=== PATIENT | female | born 1970 | race Caucasian/White ===

== ENCOUNTER 2019-03-02 19:24 | Emergency (ER) | payer OTHER ==
[2019-03-02 21:13] LABS: ABS Eosinophils 0.1 10^3/ul (0-0.6); ABS Lymphocytes 2.7 10^3/ul (1.0-4.8); ABS Monocytes 0.8 10^3/ul (0-0.8); ABS Neutrophils 6.8 10^3/ul (1.5-7.7); Eosinophil % 1.2 %; Hematocrit 42 % (35-47); Hemoglobin 13.6 g/dL (12.0-16.0); Lymphocyte % 26.2 %; Mean Corpuscular HGB Conc 32 g/dL (31-36); Mean Corpuscular Hemoglobin 27 pg (27-31); Mean Corpuscular Volume 84 fL (80-97); Mean Platelet Volume 7.6 fL (7.4-10.4); Platelet Count 336 10^3/uL (150-450); Red Blood Count 5.02 10^6 /uL (3.70-4.87); Red Cell Distribution Width 19 % (10.5-15); White Blood Count 10.4 10^3/uL (3.5-10.8)
[2019-03-02 21:30] LABS: Albumin 4.1 g/dL (3.2-5.2); Albumin/Globulin Ratio 1.2 (1-3); Calcium 9.5 mg/dL (8.6-10.3); EGFR African American 77.2 (>60); EGFR Non-African American 63.8 (>60); Globulin 3.5 g/dL (2-4); Potassium 4.5 mmol/L (3.5-5.0); Total Bilirubin 0.3 mg/dL (0.2-1.0); Total Protein 7.6 g/dL (6.4-8.9)
--- NOTE | 2019-03-02 22:45 | ED ---
Lower Extremity - HPI Summary HPI Summary: This patient is a 48 year old female presenting to [facility] accompanied by family with a chief complaint of right lower extremity swelling since 3 weeks ago. Patient broke her right knee 5 months ago and received surgery for it. The wound was healing normally, but around 3 weeks ago, patient noticed that the leg was constantly swelling and opening up on the incision site. Patient presents to the ED because she believes that it is beginning to affect her heart. The pain is rated 7/10 in severity. Symptoms aggravated by nothing. Symptoms alleviated by nothing. Patient additionally reports heart palpitations , SOB. - History of Current Complaint Chief Complaint: EDExtremityLower Stated Complaint: LEG SWELLING AFTER SURGERY,AFFECTING HEART PER PT Time Seen by Provider: 03/02/19 19:50 Hx Obtained From: Patient Onset/Duration: Weeks Severity Currently: Moderate Pain Intensity: 7 Pain Scale Used: 0-10 Numeric Timing: Constant Location: Is Discrete @ - right knee Associated Signs And Symptoms: Positive: Other - palpitations, SOB Aggravating Factor(s): Nothing Alleviating Factor(s): Nothing Able to Bear Weight: Yes - with crutches - Allergies/Home Medications Allergies/Adverse Reactions: Allergies Allergy/AdvReac Type Severity Reaction Status Date / Time No Known Allergies Allergy Verified 03/02/19 19:36 Home Medications: Home Medications Albuterol HFA INHALER* [Ventolin HFA Inhaler*] 2 puff INH Q4H PRN 03/02/19 [ History Confirmed 03/02/19] Escitalopram * [Lexapro *] 20 mg PO DAILY 03/02/19 [History Confirmed 03/02/19] Gabapentin 600 mg PO QID 03/02/19 [History Confirmed 03/02/19] Metoprolol Tartrate TAB* [Lopressor TAB*] 12.5 mg PO BID 03/02/19 [History Confirmed 03/02/19] Nitroglycerin 0.4 mg SL DAILY PRN 03/02/19 [History Confirmed 03/02/19] Umeclidinium [place] [Incruse Ellipta] 62.5 mcg INH DAILY 03/02/19 [History Confirmed 03/02/19] PMH/Surg Hx/FS Hx/Imm Hx Previously Healthy: Yes Cardiovascular History: Reports: Hx Hypertension - not on med Respiratory History: Reports: Hx Chronic Obstructive Pulmonary Disease (COPD) Opthamlomology History: Denies: Hx Legally Blind EENT History: Denies: Hx Deafness - Surgical History Surgery Procedure, Year, and Place: right ankle. back 1998 L3-L4 Infectious Disease History: No Infectious Disease History: Denies: Traveled Outside the [place] in Last 30 Days - Family History Known Family History: Positive: Hypertension - Social History Lives: With Family Alcohol Use: None Hx Substance Use: No Substance Use Type: Reports: None Hx Tobacco Use: Yes Smoking Status (MU): Light Every Day Tobacco Smoker Type: Cigarettes Amount Used/How Often: 6 cigarettes daily Review of Systems Negative: Fever Positive: Palpitations Positive: Shortness Of Breath Positive: Other - right lower extremity swelling All Other Systems Reviewed And Are Negative: Yes Physical Exam - Summary Physical Exam Summary: Appearance: Well-appearing, Well-nourished, lying in bed comfortable Skin: Warm, dry, no obvious rash Eyes: sclera anicteric, no conjunctival pallor ENT: mucous membranes moist Neck: deferred Respiratory: No signs of respiratory distress Cardiovascular: Appears well perfused, pulses are nml Abdomen: deferred Musculoskeletal: Moving all 4 extremities without obvious discomfort, Surgical incision overlying right knee, signs of poor healing in the inferior part of incision, but still clean and dry Neurological: Awake and alert, mentation is normal, speech is fluent and appropriate Psychiatric: affect is normal, does not appear anxious or depressed Triage Information Reviewed: Yes Vital Signs On Initial Exam: Initial Vitals Temp Pulse Resp BP Pulse Ox 97.3 F 99 22 146/88 98 03/02/19 19:31 03/02/19 19:31 03/02/19 19:31 03/02/19 19:31 03/02/19 19:31 Vital Signs Reviewed: Yes Diagnostics - Vital Signs Vital Signs Temp Pulse Resp BP Pulse Ox 03/02/19 21:22 98 F 92 18 116/76 100 03/02/19 19:31 97.3 F 99 22 146/88 98 - Laboratory Lab Results: Lab Results 03/02/19 03/02/19 03/02/19 Range/Units 21:02 21:02 21:02 WBC 10.4 (3.5-10.8) 10^3/uL RBC 5.02 H (3.70-4.87) 10^6 /uL Hgb 13.6 (12.0-16.0) g/dL Hct 42 (35-47) % MCV 84 (80-97) fL MCH 27 (27-31) pg MCHC 32 (31-36) g/dL RDW 19 H (10.5-15) % Plt Count 336 (150-450) 10^3/uL MPV 7.6 (7.4-10.4) fL Neut % (Auto) 65.0 % Lymph % (Auto) 26.2 % [place] % (Auto) 7.2 % Eos % (Auto) 1.2 % Baso % (Auto) 0.4 % Absolute Neuts (auto) 6.8 (1.5-7.7) 10^3/ul Absolute Lymphs (auto) 2.7 (1.0-4.8) 10^3/ul Absolute Monos (auto) 0.8 (0-0.8) 10^3/ul Absolute Eos (auto) 0.1 (0-0.6) 10^3/ul Absolute Basos (auto) 0.0 (0-0.2) 10^3/ul Absolute Nucleated RBC 0.0 10^3/ul Nucleated RBC % 0.0 D-Dimer, Quantitative 334 H (Less Than 230) ng/mL Sodium 140 (135-145) mmol/L Potassium 4.5 (3.5-5.0) mmol/L Chloride 102 (101-111) mmol/L Carbon Dioxide 31 (22-32) mmol/L Anion Gap 7 (2-11) mmol/L BUN 13 (6-24) mg/dL Creatinine 0.93 (0.51-0.95) mg/dL Est GFR ( Amer) 77.2 (>60) Est GFR (Non-Af Amer) 63.8 (>60) BUN/Creatinine Ratio 14.0 (8-20) Glucose 101 H (70-100) mg/dL Calcium 9.5 (8.6-10.3) mg/dL Total Bilirubin 0.30 (0.2-1.0) mg/dL AST 13 (13-39) U/L ALT 13 (7-52) U/L Alkaline Phosphatase 85 (34-104) U/L Troponin I 0.00 (<0.04) ng/mL Total Protein 7.6 (6.4-8.9) g/dL Albumin 4.1 (3.2-5.2) g/dL Globulin 3.5 (2-4) g/dL Albumin/Globulin Ratio 1.2 (1-3) Result Diagrams: 03/02/19 21:02 03/02/19 21:02 Lab Statement: Any lab studies that have been ordered have been reviewed, and results considered in the medical decision making process. - Radiology CXR Radiology Interpretation Completed By: ED Physician Summary of Radiographic Findings: CXR reveals, per ED physician, small left pleural effusion. Pending official report. Knee XR Radiology Interpretation Completed By: ED Physician Summary of Radiographic Findings: Knee XR reveals, per ED physician, Hardware in place, no new fractures. Pending official report. - CT CTa Chest/Thorax CT Interpretation Completed By: Radiologist Summary of CT Findings: CTA Chest/Thorax reveals, per radiologist, IMPRESSION: 1. No pulmonary emboli. 2. Chronic left effusion with associated inferior lingular and left lower lobe round atelectasis. 3. Mild emphysema. ED physician has reviewed this radiology report. - EKG 1937 Cardiac Rate: NL EKG Rhythm: Sinus Rhythm - 88 BPM Summary of EKG Findings: An EKG, taken 1937, reveals NSR (88 BPM), P waves, QRS complex, and T waves are within normal limits, T waves and intervals are normal , no ischemic changes. This is a normal EKG. - Additional Comments Diagnostic Additional Comments: Venous Doppler Study reveals, per radiologist, IMPRESSION: No right lower extremity deep vein thrombosis. ED physician has reviewed this radiology report. Lower Extremity Course/Dx - Course Course Of Treatment: This is a 48-year-old woman who had ORIF of comminuted tibial plateau fracture a few months ago in [place]. Her recovery has been complicated by difficulty getting to the surgeon in [place] with transportation issues. She comes in tonight with several weeks of what she describes as swelling in the leg as well as intermittent opening of the lower part of the wound. Tonight the leg does look swollen, but Dr. warren is negative for DVT. I can see the area of poor healing, but at this point it is clean and dry and closed. She has an elevated d-dimer, and has been complaining of some dyspnea and chest pain, and has a pleural effusion on the left side cannot discount the possibility of pulmonary embolus in the setting. I'll get a CT angiogram of the chest, but ultimately if that is negative I anticipate discharge and I reinforced the necessity of getting some type of transportation arrangements to have her surgeon follow-up on this. I will give her local follow-up options, but she may have trouble getting a local surgeon to assume her care. CTA of the chest was negative for pulmonary embolus, however there is an area of effusion with compressive atelectasis and basilar left lung. Clinically she is not behaving maximally with pneumonia, but the appearance is suggestive of that somebody put her on a course of antibiotics. I went over all this with her and reiterated that she needs local follow-up medically. - Diagnoses Provider Diagnoses: Parapneumonic effusion, Edema of right lower leg due to venous stasis Discharge - Sign-Out/Discharge Documenting (check all that apply): Patient Departure Patient Received Moderate/Deep Sedation with Procedure: No - Discharge Plan Condition: Good Disposition: HOME Prescriptions: Azithromycin TAB* [Zithromax TAB (Z-RENETTA) 250 mg #6 tabs] 2 tab PO .TODAY, THEN 1 DAILY #1 renetta Patient Education Materials: Pleural Effusion (ED) Referrals: Rubén Rowley MD [Medical Doctor] - Jc Luu MD [Medical Doctor] - Additional Instructions: Dr. Rowley or Dr. Luu may be able to help you with your wound issues, but ultimately you may have to make your way back to your surgeon in [place] if it is not healing well. You need to elevate the leg frequently to minimize the swelling, as excess swelling will prolong wound healing. You also will need a local card grinder to look after the issues in your left lung, and the interim you can go to the [facility] clinic listed. I'm going to empirically treat you with a course of antibiotics for suspected infection in the left lung - Billing Disposition and Condition Condition: GOOD Disposition: Home - Attestation Statements Document Initiated by Betzaida: Yes Documenting Scribe: Sharla Martino Provider For Whom Betzaida is Documenting (Include Credential): Avila Lanier MD Scribfaye Attestation: Sharla Schultz, scribed for Avila Lanier MD on 03/03/19 at 0616. Scribe Documentation Reviewed: Yes Provider Attestation: The documentation as recorded by the Sharla canada accurately reflects the service I personally performed and the decisions made by me, Avila Lanier MD Status of Scribe Document: Viewed
[2019-03-02] MEDS ORDERED: HYDROcodone/ACETAMIN 5-325 MG* 1 TAB PO ONE (23:59)
[2019-03-03] MEDS ORDERED: Iohexol 350* (CONTRAST) 500 ML MDV IV ONE (00:28)
[2019-03-03 02:13] VITALS: BP 123/77
== END 2019-03-03 02:12 | disposition home or self-care (01) ==
LOC: ED 19:24
DX: J90 Pleural effusion, not elsewhere classified (principal); R91.8 Other nonspecific abnormal finding of lung field; I87.8 Other specified disorders of veins; R60.0 Localized edema; I10 Essential (primary) hypertension; J44.9 Chronic obstructive pulmonary disease, unspecified; F17.210 Nicotine dependence, cigarettes, uncomplicated; Z79.51 Long term (current) use of inhaled steroids; Z79.899 Other long term (current) drug therapy; Z96.698 Presence of other orthopedic joint implants
CPT/HCPCS: 36415; 71046; 71275; 80053; 84484; 85025; 85379; 93005; 99283; Q9967

== ENCOUNTER 2019-03-05 17:01 | Inpatient (IN) | payer OTHER ==
[2019-03-05 17:59] LABS: ABS Basophils 0.1 10^3/ul (0-0.2); ABS Eosinophils 0.1 10^3/ul (0-0.6); ABS Lymphocytes 2.2 10^3/ul (1.0-4.8); ABS Monocytes 0.7 10^3/ul (0-0.8); ABS Neutrophils 6.2 10^3/ul (1.5-7.7); Eosinophil % 1.5 %; Hematocrit 40 % (35-47); Lymphocyte % 23.8 %; Mean Corpuscular HGB Conc 33 g/dL (31-36); Mean Corpuscular Hemoglobin 27 pg (27-31); Mean Corpuscular Volume 83 fL (80-97); Mean Platelet Volume 7.5 fL (7.4-10.4); Platelet Count 318 10^3/uL (150-450); Red Blood Count 4.79 10^6 /uL (3.70-4.87); Red Cell Distribution Width 19 % (10.5-15); White Blood Count 9.4 10^3/uL (3.5-10.8)
[2019-03-05 18:18] LABS: ALT 14 U/L (7-52); AST 14 U/L (13-39); Albumin 3.9 g/dL (3.2-5.2); Albumin/Globulin Ratio 1.2 (1-3); Alkaline Phosphatase 73 U/L (34-104); Anion Gap 8 mmol/L (2-11); Blood Urea Nitrogen 13 mg/dL (6-24); CO2 Carbon Dioxide 28 mmol/L (22-32); Calcium 9.7 mg/dL (8.6-10.3); Chloride 102 mmol/L (101-111); EGFR African American 77.2 (>60); EGFR Non-African American 63.8 (>60); Globulin 3.3 g/dL (2-4); Glucose 98 mg/dL (70-100); Potassium 4.1 mmol/L (3.5-5.0); Sodium 138 mmol/L (135-145); Total Protein 7.2 g/dL (6.4-8.9)
--- NOTE | 2019-03-05 18:50 | ED ---
HPI Cardiac - HPI Summary HPI Summary: Patient is a 48 y/o F presenting to ED with complaints of chest pressure, SOB, dizziness, pain behind her shoulder blades, cough and fatigue. Sx have been present for the past few days with exacerbation of Sx today. Dizziness is described as constant. Fever is denied. She had been seen 03/02/19, patient was discharged to home. Recent CXR had shown pleural effusion. Deep breaths and movement are noted to aggravate Sx. Patient has home o2. PMHx of HTN, COPD. PSHx of CABG, right ankle surgery, L3-L4 back surgery, FMHx of HTN, patient is a current smoker, alcohol and substance usage is denied. Home medications and allergies are reviewed. - History of Current Complaint Chief Complaint: EDChestPainROMI Stated Complaint: BREATHING IS GETTING WORSE PER PT Time Seen by Provider: 03/05/19 18:30 Hx Obtained From: Patient Onset/Duration: Started Days Ago, Still Present, Worse Since Timing: Constant, Lasting Days Pain Intensity: 0 Pain Scale Used: 0-10 Numeric Character: Pressure/Squeezing Aggravating Factor(s): Movement, Deep Breaths Alleviating Factor(s): Nothing Associated Signs and Symptoms: Positive: Chest Pain, Dizziness, Shortness of Breath, Cough, Back Pain - behind shoulder blades, Other: - fatigue. Negative: Fever - Allergy/Home Medications Allergies/Adverse Reactions: Allergies Allergy/AdvReac Type Severity Reaction Status Date / Time No Known Allergies Allergy Verified 03/02/19 19:36 PMH/Surg Hx/FS Hx/Imm Hx Endocrine/Hematology History: Denies: Hx Diabetes Cardiovascular History: Reports: Hx Hypertension - not on med Respiratory History: Reports: Hx Chronic Obstructive Pulmonary Disease (COPD) History: Denies: Hx Renal Disease Sensory History: Denies: Hx Legally Blind, Hx Deafness Opthamlomology History: Denies: Hx Legally Blind - Surgical History Surgery Procedure, Year, and Place: right ankle. back 1998 L3-L4 - Immunization History Date of Tetanus Vaccine: UTD Date of Influenza Vaccine: UTD Infectious Disease History: No Infectious Disease History: Denies: Traveled Outside the [place] in Last 30 Days - Family History Known Family History: Positive: Hypertension - Social History Alcohol Use: None Hx Substance Use: No Substance Use Type: Reports: None Hx Tobacco Use: Yes Smoking Status (MU): Light Every Day Tobacco Smoker Type: Cigarettes Amount Used/How Often: 6 cigarettes daily Review of Systems Positive: Fatigue. Negative: Fever Positive: Chest Pain Positive: Shortness Of Breath, Cough Musculoskeletal: Other - POSITIVE - BACK PAIN Neurological: Other - POSITIVE - DIZZINESS All Other Systems Reviewed And Are Negative: Yes Physical Exam - Summary Physical Exam Summary: VITAL SIGNS: Reviewed. GENERAL: Patient is a well-developed and obese female who is lying comfortable in the stretcher. Patient is not in any acute respiratory distress. HEAD AND FACE: No signs of trauma. No ecchymosis, hematomas or skull depressions. No sinus tenderness. EYES: PERRLA, EOMI x 2, No injected conjunctiva, no nystagmus. EARS: Hearing grossly intact. Ear canals and tympanic membranes are within normal limits. MOUTH: Oropharynx within normal limits. NECK: Supple, trachea is midline, no adenopathy, no JVD, no carotid bruit, no c- spine tenderness, neck with full ROM. CHEST: Symmetric, no tenderness at palpation LUNGS: Decreased breath sounds bilaterally, crackles at bases of both lungs. CVS: Regular rate and rhythm, S1 and S2 present, no murmurs or gallops appreciated. ABDOMEN: Soft, non-tender. No signs of distention. No rebound no guarding, and no masses palpated. Bowel sounds are normal. EXTREMITIES: FROM in all major joints, no edema, no cyanosis or clubbing. NEURO: Alert and oriented x 3. No acute neurological deficits. Speech is normal and follows commands. SKIN: Dry and warm Triage Information Reviewed: Yes Vital Signs On Initial Exam: Initial Vitals Temp Pulse Resp BP Pulse Ox 95.8 F 101 24 168/105 97 03/05/19 17:06 03/05/19 17:06 03/05/19 17:06 03/05/19 17:06 03/05/19 17:06 Vital Signs Reviewed: Yes Diagnostics - Vital Signs Vital Signs Temp Pulse Resp BP Pulse Ox 03/05/19 18:45 91 13 139/86 96 03/05/19 18:44 89 15 94 03/05/19 17:06 95.8 F 101 24 168/105 97 - Laboratory Lab Results: Lab Results 03/05/19 03/05/19 03/05/19 Range/Units 17:50 17:50 17:50 WBC 9.4 (3.5-10.8) 10^3/uL RBC 4.79 (3.70-4.87) 10^6 /uL Hgb 13.0 (12.0-16.0) g/dL Hct 40 (35-47) % MCV 83 (80-97) fL MCH 27 (27-31) pg MCHC 33 (31-36) g/dL RDW 19 H (10.5-15) % Plt Count 318 (150-450) 10^3/uL MPV 7.5 (7.4-10.4) fL Neut % (Auto) 66.4 % Lymph % (Auto) 23.8 % [place] % (Auto) 7.2 % Eos % (Auto) 1.5 % Baso % (Auto) 1.1 % Absolute Neuts (auto) 6.2 (1.5-7.7) 10^3/ul Absolute Lymphs (auto) 2.2 (1.0-4.8) 10^3/ul Absolute Monos (auto) 0.7 (0-0.8) 10^3/ul Absolute Eos (auto) 0.1 (0-0.6) 10^3/ul Absolute Basos (auto) 0.1 (0-0.2) 10^3/ul Absolute Nucleated RBC 0.0 10^3/ul Nucleated RBC % 0.0 APTT 31.7 (26.0-36.3) seconds Sodium 138 (135-145) mmol/L Potassium 4.1 (3.5-5.0) mmol/L Chloride 102 (101-111) mmol/L Carbon Dioxide 28 (22-32) mmol/L Anion Gap 8 (2-11) mmol/L BUN 13 (6-24) mg/dL Creatinine 0.93 (0.51-0.95) mg/dL Est GFR ( Amer) 77.2 (>60) Est GFR (Non-Af Amer) 63.8 (>60) BUN/Creatinine Ratio 14.0 (8-20) Glucose 98 (70-100) mg/dL Lactic Acid (0.5-2.0) mmol/L Calcium 9.7 (8.6-10.3) mg/dL Total Bilirubin 0.30 (0.2-1.0) mg/dL AST 14 (13-39) U/L ALT 14 (7-52) U/L Alkaline Phosphatase 73 (34-104) U/L Troponin I 0.15 H* (<0.04) ng/mL C-Reactive Protein (<8.01) mg/L Total Protein 7.2 (6.4-8.9) g/dL Albumin 3.9 (3.2-5.2) g/dL Globulin 3.3 (2-4) g/dL Albumin/Globulin Ratio 1.2 (1-3) 03/05/19 03/05/19 Range/Units 17:50 17:50 WBC (3.5-10.8) 10^3/uL RBC (3.70-4.87) 10^6 /uL Hgb (12.0-16.0) g/dL Hct (35-47) % MCV (80-97) fL MCH (27-31) pg MCHC (31-36) g/dL RDW (10.5-15) % Plt Count (150-450) 10^3/uL MPV (7.4-10.4) fL Neut % (Auto) % Lymph % (Auto) % [place] % (Auto) % Eos % (Auto) % Baso % (Auto) % Absolute Neuts (auto) (1.5-7.7) 10^3/ul Absolute Lymphs (auto) (1.0-4.8) 10^3/ul Absolute Monos (auto) (0-0.8) 10^3/ul Absolute Eos (auto) (0-0.6) 10^3/ul Absolute Basos (auto) (0-0.2) 10^3/ul Absolute Nucleated RBC 10^3/ul Nucleated RBC % APTT (26.0-36.3) seconds Sodium (135-145) mmol/L Potassium (3.5-5.0) mmol/L Chloride (101-111) mmol/L Carbon Dioxide (22-32) mmol/L Anion Gap (2-11) mmol/L BUN (6-24) mg/dL Creatinine (0.51-0.95) mg/dL Est GFR ( Amer) (>60) Est GFR (Non-Af Amer) (>60) BUN/Creatinine Ratio (8-20) Glucose (70-100) mg/dL Lactic Acid 1.2 (0.5-2.0) mmol/L Calcium (8.6-10.3) mg/dL Total Bilirubin (0.2-1.0) mg/dL AST (13-39) U/L ALT (7-52) U/L Alkaline Phosphatase (34-104) U/L Troponin I (<0.04) ng/mL C-Reactive Protein 16.74 H (<8.01) mg/L Total Protein (6.4-8.9) g/dL Albumin (3.2-5.2) g/dL Globulin (2-4) g/dL Albumin/Globulin Ratio (1-3) Result Diagrams: 03/06/19 05:36 03/06/19 05:36 Lab Statement: Any lab studies that have been ordered have been reviewed, and results considered in the medical decision making process. - Radiology CXR Radiology Interpretation Completed By: ED Physician Summary of Radiographic Findings: CXR showed left pleural effusion that is worse compared to previous CXR, increased interstitial congestion, pending official report. - EKG 1717 Cardiac Rate: NL - rate of 96 BPM EKG Rhythm: Sinus Rhythm Summary of EKG Findings: EKG showed sinus rhythm with rate of 96 BPM, no ST elevations. Disposition - Course Assessment/Plan: This patient is a 48-year-old female who presents to the emergency room with a chief complaint of having chest pressure, shortness of breath, dry cough, weakness, and dizziness. The patient reports that shes been having the symptoms for couple days. The patient was seen in the emergency department on 03/02/19 with the did multiple tests and the patient was discharged home with follow-up with PCP. Today she reports that she is feeling worse, the chest patients getting worse, shortness of is getting worse therefore she decided to come to the ED for further workup and management. Patient has past medical history significant for obesity, hypertension, dyslipidemia, and she had a CABG for 2 vessel disease. The patient had a chest CTA on 03/02/19 which shows no pulmonary emboli. Patient has a chronic left effusion with associated inferior inguinal and left lower lobe atelectasis. Mild emphysema. Test results without any significant abnormality except for troponin was 0.15, and CRP of 16.74. Chest x-ray has a worsening pleural effusion of the left side and interstitial edema. EKG shows a normal sinus rhythm with no ST elevation. In the ED course the patient was given aspirin, nitroglycerin, and Lopressor. I discussed my physical exam and findings with Dr. Robbins from the hospital services who recommends for the patient to be given heparin bolus and placed in heparin drip. I discuss my physical exam, findings and test results with Dr. Fregoso from the hospitalist services and he agrees to admit patient to his services. Patient is hemodynamically stable alert and oriented x 3. Before the patient was given the heparin bolus and drip, I was informed that the troponin was 0.01 instead of 0.15. Therefore I discontinue the heparin drip and a heparin bolus. However the patient continues to be short of breath possibly secondary to the increased pleural effusion. Therefore I requested Dr. Fregoso to admit the patient for further w/u and management. - Diagnoses Provider Diagnoses: Pleural effusion, Dyspnea - Physician Notifications Discussed Care Of Patient With: Ailin Fregoso Time Discussed With Above Provider: 18:47 Instructed by Provider To: Other - Patient's case was discussed with Dr. Fregoso, Dr. Fregoso accepts for admission and asks for a consult with packing machine pilot can router. 1850 - Patient's case was discussed with Dr. Robbins, he recommends heparin STEMI protocol. However, was later informed that trop was inaccurate. Medications discontinued, Dr. Fregoso still accepts patient for admission. - Critical Care Time Critical Care Time: 30-74 min Discharge - Sign-Out/Discharge Documenting (check all that apply): Patient Departure - ADMIT Patient Received Moderate/Deep Sedation with Procedure: No - Discharge Plan Condition: Good Disposition: ADMITTED TO [facility] - Billing Disposition and Condition Condition: GOOD Disposition: Admitted to [facility] - Attestation Statements Document Initiated by Xine: Yes Documenting Scribe: PENG SANDOVAL Provider For Whom Betzaida is Documenting (Include Credential): OTIS RAMOS MD Scribe Attestation: I, PENG SANDOVAL, scribed for OTIS RAMOS MD on 03/06/19 at 1102. Scribe Documentation Reviewed: Yes Provider Attestation: The documentation as recorded by the PENG canada accurately reflects the service I personally performed and the decisions made by me, OTIS RAMOS MD Status of Scribe Document: Viewed
[2019-03-05] MEDS ORDERED: Heparin for STEMI(*) 5,000 UNITS/ML 1 ML VIAL IV ONE (18:53)
[2019-03-05] MEDS ORDERED: Aspirin 81 mg CHEW TAB* 81 MG TAB.CHEW PO ONE (18:54)
[2019-03-05] MEDS ORDERED: Metoprolol Tartrate TAB* 25 MG PO ONE (18:54)
[2019-03-05] MEDS ORDERED: Nitro 2% OINT* (Nitroglycerin) 1 INCH/PAK PAK TOPICAL ONE (18:58)
[2019-03-05] MEDS ORDERED: Heparin VIAL(*) 5000 UNITS/ML VIAL (FIVE THOUSAND) IV PRN (19:42)
[2019-03-05] MEDS ORDERED: Heparin DRIP 25,000 UNITS(*) 25,000 UNITS/500 ML BAG IV SCH (19:45)
[2019-03-05] MEDS ORDERED: Nitroglycerin TAB 0.4 MG* 0.4 MG TAB SL PRN (20:47)
[2019-03-05] MEDS ORDERED: Ondansetron INJ* 2 MG/ML VIAL IV PRN (20:49)
[2019-03-05] MEDS ORDERED: Acetaminophen TAB* 325 MG PO PRN (20:49)
[2019-03-05] MEDS ORDERED: Furosemide IV* 10 MG/ML 2 ML VIAL (20 MG) IV SLOW PU ONE (20:49)
[2019-03-05] MEDS ORDERED: busPIRone TAB* 15 MG PO SCH (21:00)
[2019-03-05] MEDS ORDERED: Nicotine Lozenge mini 4 MG LOZNG.MINI MT PRN (21:02)
[2019-03-05] MEDS ORDERED: Albuterol 2.5 MG/3 ML NEB.SOL* (0.083%) INH PRN (21:10)
[2019-03-05] MEDS: Metoprolol Succinate XL TAB* 50 MG PO SCH (22:38)
[2019-03-05] MEDS: Heparin VIAL(*) 5000 UNITS/ML VIAL (FIVE THOUSAND) SUBCUT SCH (22:39)
[2019-03-05] MEDS: Gabapentin CAP(*) 300 MG PO SCH (22:39)
--- NOTE | 2019-03-06 02:30 | HP ---
CC: [facility] * ADMISSION HISTORY AND PHYSICAL: DATE OF ADMISSION: 03/05/19 PRIMARY CARE PROVIDER: None. MY ATTENDING PHYSICIAN WHILE IN THE HOSPITAL: Dr. Ailin Fregoso.* (DICTATED BY LYDIA IRVING) CHIEF COMPLAINT: Shortness of breath, pleuritic chest pain. HISTORY OF PRESENT ILLNESS: Ms. Jaime is a 48-year-old female with past medical history significant for COPD, coronary artery disease with CABG x2 in 2018, who has had 2 weeks of worsening shortness of breath, particularly with exertion and chest tightness with a new pain developing behind her left shoulder blade. The patient states this came on gradually, associated with worsening swelling in her legs. It is worse when she lies flat. The patient denies increase in her urinary frequency. The patient states that she has been getting much more short of breath with exertion to the point that she now can only walk to the door and back before having to stop to catch her breath. This is a new development for her. The patient states the pain in her shoulder blades at this point is 8/10, worse with breathing, worse with lying flat, relieved by nothing. The patient denies crushing chest pain. The patient states she has not had a heart attack in the past with no previous pain to compare this to. The patient has been having a cough, which is worse with exertion, intermittently productive of yellow sputum. The patient does not feel she has pneumonia. She has had pneumonia in the past and states this is nothing like it. The patient has been having issues with difficulty healing in her left lower extremity wound from a tibial plateau fracture repair that had been done last year after a mechanical fall down the stairs. The patient has occasional nausea with exertion and she associates this with the pain and shortness of breath. The patient came to the emergency department previously and was identified to have a pleural effusion on the CT of her chest as well as impressive atelectasis associated with it. The patient was discharged on 03/02 and had azithromycin prescribes, which she has not been able to start taking. The patient denies fever, chills, dysuria, abdominal pain, diarrhea. The patient has been having issues with severe anxiety and depression, and she does not feel that her medications that she has been on chronically are working. The patient has never seen a psychiatrist. The patient feels very overwhelmed and the patient only sleeps approximately 3 hours a night. The patient drinks a large amount of coffee during the day to stay awake. It is unknown if the patient snores or has other apneic episodes at night. Due to concern for worsening shortness of breath, pleuritic chest pain, pleural effusion, and history of coronary artery disease, we were asked to evaluate the patient for admission to the hospital. PAST MEDICAL HISTORY: Coronary artery disease, COPD, fibromyalgia, depression, anxiety. PAST SURGICAL HISTORY: CABG, 2 vessel bypass; right ankle ORIF; right tibial plateau ORIF. MEDICATIONS: 1. Incruse Ellipta 1 inhalation daily. 2. Albuterol inhaler 1 inhalation q.4 hours as needed. 3. BuSpar 5 mg p.o. b.i.d. 4. Lexapro 20 mg p.o. daily. 5. Gabapentin 600 mg p.o. q.i.d. 6. Metoprolol tartrate 25 mg p.o. b.i.d. 7. Nitroglycerin 0.4 mg sublingual q.5 hours. ALLERGIES: No known drug allergies. FAMILY HISTORY: The patient's father is alive and had 4 open heart surgeries, has diabetes and stents. The patient's mother is alive and has depression. The patient has a sister with hypertension, another sister is alive and well. SOCIAL HISTORY: The patient smokes approximately 1 pack in 3 days. She has smoked most of her adult life, quitting occasionally. Alcohol: The patient denies alcohol abuse. The patient does drink a significant amount of coffee. The patient denies illicit drug use. The patient is currently unemployed to take care of her grandson. The patient is , has 3 children. Her surrogate decision maker is her son Josh Jaime. REVIEW OF SYSTEMS: A 14-point of review of systems was reviewed, is negative except as noted above in the HPI. The patient is unsure of her previous weight gain or weight loss. PHYSICAL EXAMINATION GENERAL: The patient is a 48-year-old female who appears older than her stated age and sitting in the bed with mildly increased work of breathing. VITAL SIGNS:: Temperature 98.5, pulse rate 95, respiratory rate 18, oxygen saturation 96% on room air, blood pressure 143/94. HEENT: Head normocephalic, atraumatic. Sclerae anicteric. No conjunctival injection. Nasal mucosa moist. Oral mucosa moist. NECK: Supple, nontender. No lymphadenopathy. No carotid bruits auscultated. No JVD. CARDIAC: Tachycardic. No clicks, murmurs, gallops, or rubs. Pulses are 2+ in the dorsalis pedis, posterior tibialis, and radial areas. 3+ pitting edema in the right lower extremity. 2+ pitting edema in the left lower extremity. No pallor or calf tenderness. RESPIRATORY: Crackles heard in the bilateral lower lobes, diminished breath sounds throughout. ABDOMEN: Soft, nontender, nondistended. Bowel sounds present in all 4 quadrants. No hepatosplenomegaly. No abdominal bruits auscultated. No hepatojugular reflux. GENITOURINARY: No suprapubic or CVA tenderness. SKIN: Mottling in the bilateral lower legs around the ankles. Large open area without warmth, with mild erythema in the lower part of the surgical incision on the right lower extremity. No other rash. NEURO: Cranial nerves II through XII intact. No focal deficits. Alert and oriented x3. PSYCHIATRIC: Pleasant and cooperative. DIAGNOSTIC IMAGING/LAB DATA: White blood cell count 9.4, hemoglobin 13.0, platelet count 318. APTT 31.7. Sodium 138, potassium 4.1, chloride 102, carbon dioxide 20, anion gap 8, BUN 13, creatinine 0.93, glucose 98, lactic acid 1.2, calcium 9.7, bilirubin 0.3. AST 14, ALT 14, alkaline phosphatase 73. Troponin I 0.01. CRP 15.74, protein 7.2, albumin 3.9, globulin 3.3. BNP pending. Echocardiogram shows normal sinus rhythm. No ST segment elevation or depression. Normal axis. Left atrial enlargement. No left ventricular hypertrophy. Incomplete left bundle-branch block pattern. Rate of 96, QTc 447. Compared to previous EKG, there are no significant changes. Chest x-ray to this office view shows pulmonary vascular congestion, large left - sided pleural effusion with compressive atelectasis. ASSESSMENT AND PLAN/IMPRESSION: Ms. Jaime is a 48-year-old female with past medical history significant for coronary artery disease, status post coronary artery bypass grafting, chronic obstructive pulmonary disease, depression, anxiety, who has had a recent worsening in shortness of breath with severe dyspnea on exertion, cough, diagnosed pleural effusion with chest pain radiating into her back behind her left shoulder blade as well as swelling in her lower extremities. On my exam, the patient showed signs of acute heart failure. This is a new diagnosis for the patient. The patient was admitted to the hospital for diuresis, further evaluation including risk stratification for myocardial infarction. Acute heart failure. The patient has not had a recent echo that she knows of. The patient has no decreased ejection fraction to her knowledge; however, the patient does have a recent history of 2-vessel coronary artery bypass grafting last year. The patient has had worsening dyspnea on exertion, has a pleural effusion, and some signs of pulmonary edema and clinical fluid overload on exam. The patient will be started on furosemide 20 mg IV twice daily. The patient will have an echocardiogram in the morning to assess for decreased ejection or diastolic dysfunction. The patient is not currently requiring oxygen. The patient's pain is very likely coming from her large pleural effusion. Diuresis should hopefully help decrease the size of this and help the patient's symptoms as well. The patient will have a lipid profile and hemoglobin A1c. Given the atypical nature of the patient's chest pain and lack of troponin elevation and recent coronary artery bypass grafting, the patient will not have a stress test at this time but will at a later date or if the patient develops signs of acute coronary syndrome at this time. The patient's BNP is currently pending. Chronic obstructive pulmonary disease. The patient has diminished lung sounds. The patient is a current active smoker. The patient will be encouraged to quit smoking. The patient will be continued on her Incruse. The patient will have albuterol nebulizer while in the hospital and continue rescue inhaler at home. Anxiety and depression. The patient is currently having significant issues with anxiety and depression. The patient is currently on Lexapro and BuSpar. We will not increase the dose of her Lexapro at this time due to concerns with QT prolongation on higher doses. We will increase the patient's BuSpar to 3 times daily to see if this helps with her anxiety. The patient will establish with a primary care provider and possibly have a psychiatric consultation to help with her long-term mental health. Complaints of daytime sleepiness. The patient will be assessed for sleep apnea. May need a followup sleep study. DVT prophylaxis: The patient is high risk, on heparin subcu. FEN: The patient will have a heart-healthy diet, caffeine okay. Activity: As tolerated. TIME SPENT: Approximately 60 minutes on the admission of this patient, 30 of which were spent [id number] with the patient obtaining history and physical and discussing treatment plan. The plan was discussed with my attending Dr. Ailin Fregoso and she is in agreement. LYDIA IRVING [id number]/[facility] #: [id number] KEISHA
[2019-03-06] MEDS: Heparin VIAL(*) 5000 UNITS/ML VIAL (FIVE THOUSAND) SUBCUT SCH ×3 (05:28→21:32)
[2019-03-06 06:12] LABS: ABS Eosinophils 0.2 10^3/ul (0-0.6); ABS Lymphocytes 1.9 10^3/ul (1.0-4.8); ABS Monocytes 0.7 10^3/ul (0-0.8); ABS Neutrophils 4.4 10^3/ul (1.5-7.7); Eosinophil % 2.2 %; Hematocrit 39 % (35-47); Hemoglobin 12.9 g/dL (12.0-16.0); Lymphocyte % 26.7 %; Mean Corpuscular HGB Conc 33 g/dL (31-36); Mean Corpuscular Hemoglobin 28 pg (27-31); Mean Corpuscular Volume 83 fL (80-97); Mean Platelet Volume 7.6 fL (7.4-10.4); Nucleated Red Blood Cells % 0.1; Platelet Count 328 10^3/uL (150-450); Red Blood Count 4.67 10^6 /uL (3.70-4.87); Red Cell Distribution Width 19 % (10.5-15); White Blood Count 7.2 10^3/uL (3.5-10.8)
[2019-03-06 06:28] LABS: BUN/Creatinine Ratio 13.8 (8-20); Calcium 8.9 mg/dL (8.6-10.3); EGFR African American 83.4 (>60); EGFR Non-African American 68.9 (>60); Magnesium 1.9 mg/dL (1.9-2.7); Potassium 3.8 mmol/L (3.5-5.0)
[2019-03-06] MEDS: Gabapentin CAP(*) 300 MG PO SCH ×4 (07:27→21:31)
[2019-03-06] MEDS: Escitalopram * 20 MG TABLET PO SCH (07:28)
[2019-03-06] MEDS: busPIRone TAB* 5 MG PO SCH ×3 (07:28→21:31)
[2019-03-06] MEDS: Furosemide IV* 10 MG/ML VIAL (40 MG) IV SLOW PU SCH ×3 (07:31→17:56)
[2019-03-06] MEDS: Metoprolol Succinate XL TAB* 50 MG PO SCH (07:31)
[2019-03-06] MEDS: NFT: Umeclidinium 62.5 MDI(NF) MDI INH SCH (07:38)
[2019-03-06] MEDS ORDERED: Perflutren Lipid Microsphere* 3 ML VIAL ONE (09:37)
--- NOTE | 2019-03-06 10:39 | PN ---
Subjective Date of Service: 03/06/19 Interval History: Pt is feeling poorly still. She can not lie on her back without feeling markedly SOB. If she lays on her side she feels more comfortable. She also feels discomfort in her chest/between the shoulder blades when flat on her back. Her LE edema is somewhat better. No other issues. Objective Active Medications: Acetaminophen (Tylenol Tab*) 650 mg PO Q6H PRN PRN Reason: FEVER/PAIN Albuterol (Ventolin 2.5 Mg/3 Ml Neb.Kristen*) 2.5 mg INH Q4H PRN PRN Reason: SOB/WHEEZING Buspirone HCl (Buspar Tab*) 5 mg PO TID [facility] Last Admin: 03/06/19 07:28 Dose: 5 mg Escitalopram Oxalate (Lexapro *) 20 mg PO DAILY [facility] Last Admin: 03/06/19 07:28 Dose: 20 mg Furosemide (Lasix Iv*) 20 mg IV SLOW PU 0800,1700 [facility] Last Admin: 03/06/19 07:31 Dose: 20 mg Gabapentin (Neurontin Cap(*)) 600 mg PO QID [facility] Last Admin: 03/06/19 07:27 Dose: 600 mg Heparin Sodium (Porcine) (Heparin Vial(*)) 5,000 units SUBCUT Q8HR [facility] Last Admin: 03/06/19 05:28 Dose: 5,000 units Metoprolol Succinate (Toprol Xl Tab*) 50 mg PO DAILY [facility] Last Admin: 03/06/19 07:31 Dose: 50 mg Nicotine Polacrilex (Nicotine Lozenge Mini) 4 mg MT Q2H PRN PRN Reason: CRAVINGS Nitroglycerin (Nitroglycerin Tab 0.4 Mg*) 0.4 mg SL DAILY PRN PRN Reason: CHEST PAIN Ondansetron HCl (Zofran Inj*) 4 mg IV Q6H PRN PRN Reason: NAUSEA Umeclidinium Quincy (Incruse Ellipta Mdi (Nf)) 1 inh INH DAILY [facility] Last Admin: 03/06/19 07:38 Dose: Not Given Vital Signs - 8 hr 03/06/19 03/06/19 03/06/19 03:33 06:32 07:27 Temperature 97.5 F Pulse Rate 83 Respiratory 18 16 Rate Blood Pressure 98/65 (mmHg) O2 Sat by Pulse 95 96 Oximetry 03/06/19 03/06/19 07:29 08:00 Temperature 97.9 F Pulse Rate 74 Respiratory 16 16 Rate Blood Pressure 124/80 (mmHg) O2 Sat by Pulse 94 Oximetry Oxygen Devices in Use Now: None Appearance: Middle aged obese female lying flat on her side in bed, NAD Eyes: No Scleral Icterus Ears/Nose/Mouth/Throat: Mucous Membranes Moist Respiratory: Symmetrical Chest Expansion and Respiratory Effort, - - diminshed breath sounds at the bases bilaterally Cardiovascular: NL Sounds; No Murmurs; No JVD, RRR, - - trace LE edema Abdominal: NL Sounds; No Tenderness; No Distention Extremities: No Clubbing, Cyanosis Skin: No Nodules or Sclerosis Neurological: Alert and Oriented x 3 Result Diagrams: 03/06/19 05:36 03/06/19 05:36 Additional Lab and Data: Lab Results 03/05/19 03/05/19 03/05/19 Range/Units 17:50 17:50 17:50 WBC 9.4 (3.5-10.8) 10^3/uL RBC 4.79 (3.70-4.87) 10^6 /uL Hgb 13.0 (12.0-16.0) g/dL Hct 40 (35-47) % MCV 83 (80-97) fL MCH 27 (27-31) pg MCHC 33 (31-36) g/dL RDW 19 H (10.5-15) % Plt Count 318 (150-450) 10^3/uL MPV 7.5 (7.4-10.4) fL Neut % (Auto) 66.4 % Lymph % (Auto) 23.8 % Moffat % (Auto) 7.2 % Eos % (Auto) 1.5 % Baso % (Auto) 1.1 % Absolute Neuts (auto) 6.2 (1.5-7.7) 10^3/ul Absolute Lymphs (auto) 2.2 (1.0-4.8) 10^3/ul Absolute Monos (auto) 0.7 (0-0.8) 10^3/ul Absolute Eos (auto) 0.1 (0-0.6) 10^3/ul Absolute Basos (auto) 0.1 (0-0.2) 10^3/ul Absolute Nucleated RBC 0.0 10^3/ul Nucleated RBC % 0.0 APTT 31.7 (26.0-36.3) seconds Sodium 138 (135-145) mmol/L Potassium 4.1 (3.5-5.0) mmol/L Chloride 102 (101-111) mmol/L Carbon Dioxide 28 (22-32) mmol/L Anion Gap 8 (2-11) mmol/L BUN 13 (6-24) mg/dL Creatinine 0.93 (0.51-0.95) mg/dL Est GFR ( Amer) 77.2 (>60) Est GFR (Non-Af Amer) 63.8 (>60) BUN/Creatinine Ratio 14.0 (8-20) Glucose 98 (70-100) mg/dL Lactic Acid (0.5-2.0) mmol/L Calcium 9.7 (8.6-10.3) mg/dL Total Bilirubin 0.30 (0.2-1.0) mg/dL AST 14 (13-39) U/L ALT 14 (7-52) U/L Alkaline Phosphatase 73 (34-104) U/L Troponin I 0.15 H* (<0.04) ng/mL C-Reactive Protein (<8.01) mg/L Total Protein 7.2 (6.4-8.9) g/dL Albumin 3.9 (3.2-5.2) g/dL Globulin 3.3 (2-4) g/dL Albumin/Globulin Ratio 1.2 (1-3) 03/05/19 03/05/19 Range/Units 17:50 17:50 WBC (3.5-10.8) 10^3/uL RBC (3.70-4.87) 10^6 /uL Hgb (12.0-16.0) g/dL Hct (35-47) % MCV (80-97) fL MCH (27-31) pg MCHC (31-36) g/dL RDW (10.5-15) % Plt Count (150-450) 10^3/uL MPV (7.4-10.4) fL Neut % (Auto) % Lymph % (Auto) % Moffat % (Auto) % Eos % (Auto) % Baso % (Auto) % Absolute Neuts (auto) (1.5-7.7) 10^3/ul Absolute Lymphs (auto) (1.0-4.8) 10^3/ul Absolute Monos (auto) (0-0.8) 10^3/ul Absolute Eos (auto) (0-0.6) 10^3/ul Absolute Basos (auto) (0-0.2) 10^3/ul Absolute Nucleated RBC 10^3/ul Nucleated RBC % APTT (26.0-36.3) seconds Sodium (135-145) mmol/L Potassium (3.5-5.0) mmol/L Chloride (101-111) mmol/L Carbon Dioxide (22-32) mmol/L Anion Gap (2-11) mmol/L BUN (6-24) mg/dL Creatinine (0.51-0.95) mg/dL Est GFR ( Amer) (>60) Est GFR (Non-Af Amer) (>60) BUN/Creatinine Ratio (8-20) Glucose (70-100) mg/dL Lactic Acid 1.2 (0.5-2.0) mmol/L Calcium (8.6-10.3) mg/dL Total Bilirubin (0.2-1.0) mg/dL AST (13-39) U/L ALT (7-52) U/L Alkaline Phosphatase (34-104) U/L Troponin I (<0.04) ng/mL C-Reactive Protein 16.74 H (<8.01) mg/L Total Protein (6.4-8.9) g/dL Albumin (3.2-5.2) g/dL Globulin (2-4) g/dL Albumin/Globulin Ratio (1-3) Assess/Plan/Problems-Billing Ms Jaime is a 48 yo F who has a h/o CAD s/p CABG last year, chronic wound to R anterior galdamez, COPD, depression and anxiety who presented to the ER with c/o shortness of breath and pain between her shoulder blades. - Patient Problems (1) CHF (congestive heart failure) Current Visit: Yes Status: Acute Code(s): I50.9 - HEART FAILURE, UNSPECIFIED SNOMED Code(s): 44617533 Comment: I suspect the patient's symptoms of SOB, PND and discomfort in the posterior chest is related to CHF. She has a moderate L pleural effusion. No signs of infection as the cause of her symptoms. SHe has been receiving IV lasix 20mg BID but she has not urinated much. Will await results of echo to eval her EF and likely increase the lasix to 40mg BID. (2) COPD (chronic obstructive pulmonary disease) Current Visit: Yes Status: Acute Code(s): J44.9 - CHRONIC OBSTRUCTIVE PULMONARY DISEASE, UNSPECIFIED SNOMED Code(s): 68079438 Comment: Pt with h/o COPD. No wheezing or tight breath sounds. I do not think COPD is the main industrial truck driver of her symptoms but it may be playing a small role. Continue prn albuterol. (3) Depression with anxiety Current Visit: Yes Status: Acute Code(s): F41.8 - OTHER SPECIFIED ANXIETY DISORDERS SNOMED Code(s): 156333629 Comment: Pt reports not having well controlled symptoms on admission. Buspar increased to TID but dose could be escalated if she continues with high anxiety. Anxiety could also be affecting her SOB. (4) DVT prophylaxis Current Visit: Yes Status: Acute Code(s): Z29.9 - ENCOUNTER FOR PROPHYLACTIC MEASURES, UNSPECIFIED SNOMED Code(s): 697561879 Comment: SQ heparin (5) Full code status Current Visit: Yes Status: Acute Code(s): Z78.9 - OTHER SPECIFIED HEALTH STATUS SNOMED Code(s): 207353597
--- NOTE | 2019-03-06 11:27 | ECHO ---
*[facility]* [place] [address] Fax #: [phone] Transthoracic Echocardiogram Patient: Addison, Height: 66 in / Camille 167.6 cm : 1970 Weight: 275.4 lb / Study Date: 03/06/2019 125.2 kg Age: 48 BP: 98 / 65 Gender: F BMI/BSA: 44.5 kg/m^2 HR: 74 bpm / 2.29 m^2 *Director Of Analytical Development: * Funmi Terrell [facility] *Referring Physician: * Amanuel Henderson *Reading Physician: * Satish Robbins MD Indications: Congestive Heart Failure. History: Coronary artery disease. PMH: COPD exacerbation. Risk factors: Obese. Labs, prior tests, procedures, and surgery: Coronary artery bypass grafting. Conclusions Summary: 1. Left ventricle: The cavity size is normal. Wall thickness is mildly increased. Systolic function is normal. The estimated ejection fraction is 55-60%, by visual assessment. Wall motion is normal; there are no regional wall motion abnormalities. 2. Ventricular septum: There is septal flattening of the interventricular septum consistent with RV volume or pressure overload. 3. Mitral valve: There is trivial regurgitation. 4. Aortic valve: There is no evidence of stenosis. 5. Tricuspid valve: There is trivial regurgitation. 6. Impressions: No previous study was available for comparison. Study data: Transthoracic echocardiogram. Procedure: Transthoracic echocardiography was performed. Image quality was suboptimal. The study was technically limited due to body habitus. Intravenous contrast (Definity, 3 mls) was administered. By Rachael Maddox RN. Complete 2D, spectral Doppler, and color flow Doppler. Location: Bedside. Patient status: Inpatient. Patient room number: 442-1. Rhythm: Normal sinus rhythm with PVC's. Findings Left ventricle: The cavity size is normal. Wall thickness is mildly increased. Systolic function is normal. The estimated ejection fraction is 55-60%, by visual assessment. Wall motion is normal; there are no regional wall motion abnormalities. There is no consistent Doppler evidence of clinically significant diastolic dysfunction. Right ventricle: The cavity size is moderately dilated. Systolic function is mildly reduced. Ventricular septum: Ventricular septal wall motion has a postoperative appearance. There is septal flattening of the interventricular septum consistent with RV volume or pressure overload. Left atrium: The atrium is at the lower limits of normal size. Right atrium: The atrium is normal in size. Mitral valve: The leaflets are mildly thickened. There is no evidence of stenosis. There is trivial regurgitation. The peak diastolic gradient is 6.2 mm Hg. Aortic valve: The valve is trileaflet. There is no evidence of stenosis. There is no significant regurgitation. The ratio of LVOT to aortic valve peak velocity is 0.63. The ratio of LVOT to aortic valve mean velocity is 0.64. The mean systolic gradient is 3.0 mm Hg. The peak systolic gradient is 8.0 mm Hg. Tricuspid valve: Not well visualized. There is no evidence of stenosis. There is trivial regurgitation. Pulmonic valve: Not well visualized. There is no evidence of stenosis. The peak systolic gradient is 3.0 mm Hg. Aorta: Ascending aorta: The ascending aorta is appears normal. Aortic arch: The aortic arch is appears normal. The aortic root is not dilated. Pericardium: A prominent pericardial fat pad is present. There is no pericardial effusion. Pulmonary arteries: Not well visualized. Systemic veins: Inferior vena cava: The vessel is normal in size. The respirophasic diameter changes are in the normal range (>= 50%). Measurements Left ventricle Value Ref Left atrium continued Value Ref MANUEL, LAX 3.9 cm 3.8 - 5.2 Vol/bsa, ES, 1-p 23 ml/m^2 11 - 40 ESD, LAX 3.0 cm 2.2 - 3.5 A4C FS, LAX (L) 22 % 27 - 45 Vol/bsa, ES, A/L 30 ml/m^2 16 - 34 PW, ED, LAX (H) 1.2 cm 0.6 - 0.9 PW/ID, ED, LAX 0.3 --------- Right atrium Value Ref MANUEL 3.9 cm 3.8 - 5.2 SI dim, ES 4.8 cm 3.4 - ESD 3.0 cm 2.2 - 3.5 5.3 FS (L) 22 % 27 - 45 ML dim, ES, A4C (H) 4.6 cm 2.6 - PW, ED (H) 1.2 cm 0.6 - 0.9 4.4 EF (L) 46 % 54 - 74 Mass 138 g 66 - 150 Aortic valve Value Ref Mass/bsa 60 g/m^2 44 - 88 Ayesha diam, ED 2.0 cm -------- Mass/ht 82.26 g/m --------- Peak v, S 1.4 m/sec -------- Mass/ht^2.7 34.18 g/m^2.7 --------- Mean v, S 0.9 m/sec -------- E', lat ayesha, TDI (L) 7.2 cm/sec >=10.0 VTI, S 25.7 cm - ------- E/e', lat ayesha, 17 --------- Mean grad, S 3.0 mm Hg ---- ---- TDI Peak grad, S 8.0 mm Hg -------- E', med ayesha, TDI (L) 6.3 cm/sec >=7.0 LVOT/AV, Vpeak 0.63 - ------- E/e', med ayesha, 20 --------- ratio TDI E', avg, TDI 6.8 cm/sec --------- Mitral valve Value Ref E/e', avg, TDI (H) 18 <=14 Peak E 1.24 m/sec - ------- Peak A 1.09 m/sec -------- LVOT Value Ref Decel time 204 ms -------- Peak teressa, S 0.88 m/sec --------- Peak grad, D 6.2 mm Hg -------- Mean teressa, S 0.58 m/sec --------- Peak E/A ratio 1.1 -------- Mean grad, S 2 mm Hg --------- Aortic root Value Ref Ventricular septum Value Ref Root diam 2.8 cm <4.4 IVS, ED, LAX (H) 1.1 cm 0.6 - 0.9 IVS, ED (H) 1.1 cm 0.6 - 0.9 Ascending aorta Value Ref AAo AP diam, S 3.2 cm -------- Right ventricle Value Ref MANUEL, LAX 3.2 cm --------- Aortic arch Value Ref MANUEL minor ax, A4C (H) 5.5 cm 1.9 - 3.5 Arch diam 2.8 cm -------- mid Decending aorta Value Ref Left atrium Value Ref Rivka peak teressa 0.74 m/sec -------- AP dim, ES (H) 3.90 cm 2.70 - 3.80 Inferior vena cava Value Ref ML dim, A4C 4.1 cm --------- Diam 1.8 cm -------- SI dim, A4C 5.3 cm --------- Legend: (L) and (H) bakari values outside specified reference range. Prepared and electronically signed by Satish Robbins MD 03/06/2019 11:27
--- NOTE | 2019-03-06 17:45 | CONSULT ---
Subjective Date of Service: 03/06/19 Interval History: Ms. Jaime is a 48 yo female with PMH significant for COPD, CAD s/p 2 vessal CABG; who presented to the emergnecy room with complaints of shortness of breath and chest tightness. She was admitted for heart failure. She reports having an ORIF of her right tibial plateau on 10/23/18, she states that since she had surgery in [place] she has been unable to follow up with her orthopedic surgeon. She states that the incision on her right leg has never fully healed. She states that she has noticed once the leg swells the incision opens up a little. She has not been doing any wound care for the area. She states that she is unable to keep her legs elevated throughout the day as she is caring for her grandchild. Patient was seen and examined at bedside. Family History: Unchanged from Admission Social History: Unchanged from Admission Past Medical History: Unchanged from Admission Review of Systems - Measurements Intake and Output: Intake and Output Last 24 Hours 03/04/19 03/05/19 03/06/19 03/07/19 06:59 06:59 06:59 06:59 Intake Total 0 950 Balance 0 950 Weight 278 lb 8 oz Intake: Oral 0 950 Other: # Voids 2 - Review of Systems Constitutional Symptoms: Negative: Fever, Other - Chills Dermatology: Positive: Other - Chronic open area to right knee Cardiology: Positive: Edema Objective Active Medications: Acetaminophen (Tylenol Tab*) 650 mg PO Q6H PRN Reason: FEVER/PAIN Albuterol (Ventolin 2.5 Mg/3 Ml Neb.Kristen*) 2.5 mg INH Q4H PRN Reason: SOB/ WHEEZING Buspirone HCl (Buspar Tab*) 5 mg PO TID [facility] Escitalopram Oxalate (Lexapro *) 20 mg PO DAILY JORI Furosemide (Lasix Iv*) 40 mg IV SLOW PU 0800,1700 J[facility] Gabapentin (Neurontin Cap(*)) 600 mg PO QID [facility]OR[facility] Heparin Sodium (Porcine) (Heparin Vial(*)) 5,000 units SUBCUT Q8HR [facility] Metoprolol Succinate (Toprol Xl Tab*) 50 mg PO DAILY JORI Nicotine Polacrilex (Nicotine Lozenge Mini) 4 mg MT Q2H PRN Reason: CRAVINGS Nitroglycerin (Nitroglycerin Tab 0.4 Mg*) 0.4 mg SL DAILY PRN Reason: CHEST PAIN Ondansetron HCl (Zofran Inj*) 4 mg IV Q6H PRN Reason: NAUSEA Umeclidinium [place] (Incruse Ellipta Mdi (Nf)) 1 inh INH DAILY JORI Vital Signs 03/06/19 03/06/19 03/06/19 11:46 13:11 15:53 Temperature 97.6 F 97.5 F Pulse Rate 64 71 Respiratory 22 16 20 Rate Blood Pressure 116/73 122/79 (mmHg) O2 Sat by Pulse 93 96 Oximetry Oxygen Devices in Use Now: None Appearance: NAD, sitting on the side of the bed Ears/Nose/Mouth/Throat: Mucous Membranes Moist Respiratory: Symmetrical Chest Expansion and Respiratory Effort Extremities: - - Mild left LE edema Skin: - - See skin note below Neurological: Alert and Oriented x 3, NL Muscle Strength and Tone Nutrition: Taking PO's Result Diagrams: 03/06/19 05:36 03/06/19 05:36 Skin Deviation Note - Skin Deviation Findings Right leg, distal to the knee - There is a superfical open area on the incision line. The most proximal area is closed at this time. The distal wound measures 4 cm x 1 cm x 0.1 cm. The wound base is dry with red granulation tissue. The skin surrounding the larger wound has some yellow crusting. The surrounding skin is intact, no erythema and there is no drainage noted. Assessment/Plan: Ms. Jaime is a 48 yo female with PMH significant for COPD, CAD s/p 2 vessal CABG; who presented to the emergency room with complaints of shortness of breath and chest tightness. She was admitted for heart failure. She presented to the hospital with an open area to her right knee. 1. Right knee wound. The patient has a chronic wound located in the incision line from a surgery that she had the end of September 2018. Recommend applying antibiotic ointment and a dry dressing. She would also benefit from FREEMAN wraps/ Medigrip, if she has compression stockings she could use those. Consider referring to the wound clinic at discharge 2. Diet. Heart Healthy diet 3. Code Status. Full Code 4. Disposition. Inpatient, disposition per primary medicine team TIME SPENT: Time for this wound consultation was 20 minutes and 10 minutes was spent with the patient discussing past medical history and treatment of the wound; assessing, measuring, and photographing the wound. Wound Problem/Plan Is Patient a Wound Clinic Patient: No Attending: Lenora Rodríguez
[2019-03-06 21:11] LABS: Troponin I 0.01 ng/mL (<0.04)
[2019-03-07] MEDS: Heparin VIAL(*) 5000 UNITS/ML VIAL (FIVE THOUSAND) SUBCUT SCH ×3 (05:20→21:41)
[2019-03-07] MEDS: NFT: Umeclidinium 62.5 MDI(NF) MDI INH SCH (08:03)
[2019-03-07] MEDS: busPIRone TAB* 5 MG PO SCH ×3 (08:23→20:11)
[2019-03-07] MEDS: Escitalopram * 20 MG TABLET PO SCH (08:23)
[2019-03-07] MEDS: Gabapentin CAP(*) 300 MG PO SCH ×4 (08:23→20:12)
[2019-03-07] MEDS: Metoprolol Succinate XL TAB* 50 MG PO SCH (08:23)
[2019-03-07] MEDS: Furosemide IV* 10 MG/ML VIAL (40 MG) IV SLOW PU SCH ×2 (08:24→17:21)
--- NOTE | 2019-03-07 16:01 | PN ---
Subjective Date of Service: 03/07/19 Interval History: Pt is feeling poorly still. She continues to sleep very poorly due to pain in her back and difficulty breathing. She states she had a nebulizer treatment last night that helped slightly. She feels exhausted and frustrated that she is not feeling any better. Family History: Unchanged from Admission Social History: Unchanged from Admission Past Medical History: Unchanged from Admission Objective Active Medications: Acetaminophen (Tylenol Tab*) 650 mg PO Q6H PRN PRN Reason: FEVER/PAIN Last Admin: 03/06/19 13:12 Dose: 650 mg Albuterol (Ventolin 2.5 Mg/3 Ml Neb.Kristen*) 2.5 mg INH Q4H PRN PRN Reason: SOB/WHEEZING Last Admin: 03/06/19 21:38 Dose: 2.5 mg Buspirone HCl (Buspar Tab*) 5 mg PO TID [facility] Last Admin: 03/07/19 14:46 Dose: 5 mg Escitalopram Oxalate (Lexapro *) 20 mg PO DAILY [facility] Last Admin: 03/07/19 08:23 Dose: 20 mg Furosemide (Lasix Iv*) 40 mg IV SLOW PU 0800,1700 [facility] Last Admin: 03/07/19 08:24 Dose: 40 mg Gabapentin (Neurontin Cap(*)) 600 mg PO QID [facility] Last Admin: 03/07/19 14:45 Dose: 600 mg Heparin Sodium (Porcine) (Heparin Vial(*)) 5,000 units SUBCUT Q8HR [facility] Last Admin: 03/07/19 14:46 Dose: 5,000 units Metoprolol Succinate (Toprol Xl Tab*) 50 mg PO DAILY [facility] Last Admin: 03/07/19 08:23 Dose: 50 mg Nicotine Polacrilex (Nicotine Lozenge Mini) 4 mg MT Q2H PRN PRN Reason: CRAVINGS Nitroglycerin (Nitroglycerin Tab 0.4 Mg*) 0.4 mg SL DAILY PRN PRN Reason: CHEST PAIN Ondansetron HCl (Zofran Inj*) 4 mg IV Q6H PRN PRN Reason: NAUSEA Last Admin: 03/06/19 18:02 Dose: 4 mg Umeclidinium [place] (Incruse Ellipta Mdi (Nf)) 1 inh INH DAILY [facility] Last Admin: 03/07/19 08:03 Dose: Not Given Vital Signs - 8 hr 03/07/19 03/07/19 03/07/19 08:22 08:23 14:45 Pulse Rate 80 Respiratory 16 16 Rate Blood Pressure 107/74 (mmHg) Oxygen Devices in Use Now: None Appearance: Middle aged female lying in bed on her L sided, NAD Eyes: No Scleral Icterus Ears/Nose/Mouth/Throat: Mucous Membranes Moist Respiratory: Symmetrical Chest Expansion and Respiratory Effort, Clear to Auscultation - scattered wheezes, diminished breath sounds at the bases Cardiovascular: NL Sounds; No Murmurs; No JVD, RRR, - - trace LE edema bilaterally Abdominal: NL Sounds; No Tenderness; No Distention Extremities: No Clubbing, Cyanosis Skin: No Nodules or Sclerosis, - - wound to R proximal leg not inspected today Neurological: Alert and Oriented x 3 Result Diagrams: 03/06/19 05:36 03/06/19 05:36 Additional Lab and Data: Lab Results 03/05/19 03/05/19 03/05/19 Range/Units 17:50 17:50 17:50 WBC 9.4 (3.5-10.8) 10^3/uL RBC 4.79 (3.70-4.87) 10^6 /uL Hgb 13.0 (12.0-16.0) g/dL Hct 40 (35-47) % MCV 83 (80-97) fL MCH 27 (27-31) pg MCHC 33 (31-36) g/dL RDW 19 H (10.5-15) % Plt Count 318 (150-450) 10^3/uL MPV 7.5 (7.4-10.4) fL Neut % (Auto) 66.4 % Lymph % (Auto) 23.8 % [place] % (Auto) 7.2 % Eos % (Auto) 1.5 % Baso % (Auto) 1.1 % Absolute Neuts (auto) 6.2 (1.5-7.7) 10^3/ul Absolute Lymphs (auto) 2.2 (1.0-4.8) 10^3/ul Absolute Monos (auto) 0.7 (0-0.8) 10^3/ul Absolute Eos (auto) 0.1 (0-0.6) 10^3/ul Absolute Basos (auto) 0.1 (0-0.2) 10^3/ul Absolute Nucleated RBC 0.0 10^3/ul Nucleated RBC % 0.0 APTT 31.7 (26.0-36.3) seconds Sodium 138 (135-145) mmol/L Potassium 4.1 (3.5-5.0) mmol/L Chloride 102 (101-111) mmol/L Carbon Dioxide 28 (22-32) mmol/L Anion Gap 8 (2-11) mmol/L BUN 13 (6-24) mg/dL Creatinine 0.93 (0.51-0.95) mg/dL Est GFR ( Amer) 77.2 (>60) Est GFR (Non-Af Amer) 63.8 (>60) BUN/Creatinine Ratio 14.0 (8-20) Glucose 98 (70-100) mg/dL Lactic Acid (0.5-2.0) mmol/L Calcium 9.7 (8.6-10.3) mg/dL Total Bilirubin 0.30 (0.2-1.0) mg/dL AST 14 (13-39) U/L ALT 14 (7-52) U/L Alkaline Phosphatase 73 (34-104) U/L Troponin I 0.15 H* (<0.04) ng/mL C-Reactive Protein (<8.01) mg/L Total Protein 7.2 (6.4-8.9) g/dL Albumin 3.9 (3.2-5.2) g/dL Globulin 3.3 (2-4) g/dL Albumin/Globulin Ratio 1.2 (1-3) 03/05/19 03/05/19 Range/Units 17:50 17:50 WBC (3.5-10.8) 10^3/uL RBC (3.70-4.87) 10^6 /uL Hgb (12.0-16.0) g/dL Hct (35-47) % MCV (80-97) fL MCH (27-31) pg MCHC (31-36) g/dL RDW (10.5-15) % Plt Count (150-450) 10^3/uL MPV (7.4-10.4) fL Neut % (Auto) % Lymph % (Auto) % [place] % (Auto) % Eos % (Auto) % Baso % (Auto) % Absolute Neuts (auto) (1.5-7.7) 10^3/ul Absolute Lymphs (auto) (1.0-4.8) 10^3/ul Absolute Monos (auto) (0-0.8) 10^3/ul Absolute Eos (auto) (0-0.6) 10^3/ul Absolute Basos (auto) (0-0.2) 10^3/ul Absolute Nucleated RBC 10^3/ul Nucleated RBC % APTT (26.0-36.3) seconds Sodium (135-145) mmol/L Potassium (3.5-5.0) mmol/L Chloride (101-111) mmol/L Carbon Dioxide (22-32) mmol/L Anion Gap (2-11) mmol/L BUN (6-24) mg/dL Creatinine (0.51-0.95) mg/dL Est GFR ( Amer) (>60) Est GFR (Non-Af Amer) (>60) BUN/Creatinine Ratio (8-20) Glucose (70-100) mg/dL Lactic Acid 1.2 (0.5-2.0) mmol/L Calcium (8.6-10.3) mg/dL Total Bilirubin (0.2-1.0) mg/dL AST (13-39) U/L ALT (7-52) U/L Alkaline Phosphatase (34-104) U/L Troponin I (<0.04) ng/mL C-Reactive Protein 16.74 H (<8.01) mg/L Total Protein (6.4-8.9) g/dL Albumin (3.2-5.2) g/dL Globulin (2-4) g/dL Albumin/Globulin Ratio (1-3) Assess/Plan/Problems-Billing Ms Jaime is a 48 yo F who has a h/o CAD s/p CABG last year, chronic wound to R anterior galdamez, COPD, depression and anxiety who presented to the ER with c/o shortness of breath and pain between her shoulder blades. - Patient Problems (1) CHF (congestive heart failure) Current Visit: Yes Status: Acute Code(s): I50.9 - HEART FAILURE, UNSPECIFIED SNOMED Code(s): 23871338 Comment: I suspect the patient's symptoms of SOB, PND and discomfort in the posterior chest is related to CHF. However the patient has not improved with diuresis. She has a moderate L pleural effusion. Continue lasix 40mg IV q12hr and reassess tomorrow. Will also start treatment for possible COPD to see if that helps her symptoms. (2) COPD (chronic obstructive pulmonary disease) Current Visit: Yes Status: Acute Code(s): J44.9 - CHRONIC OBSTRUCTIVE PULMONARY DISEASE, UNSPECIFIED SNOMED Code(s): 07408209 Comment: Pt with h/o COPD. Pt is wheezing today. Start solumedrol and standing nebs. Reassess symptoms tomorrow. (3) Depression with anxiety Current Visit: Yes Status: Acute Code(s): F41.8 - OTHER SPECIFIED ANXIETY DISORDERS SNOMED Code(s): 099435980 Comment: Pt reports not having well controlled symptoms on admission. Buspar increased to TID but dose could be escalated if she continues with high anxiety. Anxiety could also be affecting her SOB. (4) DVT prophylaxis Current Visit: Yes Status: Acute Code(s): Z29.9 - ENCOUNTER FOR PROPHYLACTIC MEASURES, UNSPECIFIED SNOMED Code(s): 151323242 Comment: SQ heparin (5) Full code status Current Visit: Yes Status: Acute Code(s): Z78.9 - OTHER SPECIFIED HEALTH STATUS SNOMED Code(s): 946301704
[2019-03-07] MEDS: Albuterol 2.5 MG/3 ML NEB.SOL* (0.083%) INH SCH ×2 (16:22→19:35)
[2019-03-07] MEDS: methylPREDNISolone SOD 40 MG* 1 ML VIAL IV SCH (17:21)
[2019-03-08] MEDS: Albuterol 2.5 MG/3 ML NEB.SOL* (0.083%) INH SCH ×4 (00:17→11:38)
[2019-03-08] MEDS ORDERED: Docusate CAP* 100 MG PO PRN (01:51)
[2019-03-08] MEDS ORDERED: Senna TAB PO PRN (01:51)
[2019-03-08] MEDS: methylPREDNISolone SOD 40 MG* 1 ML VIAL IV SCH (05:32)
[2019-03-08] MEDS: Heparin VIAL(*) 5000 UNITS/ML VIAL (FIVE THOUSAND) SUBCUT SCH (05:34)
[2019-03-08 08:04] VITALS: BP 138/66
[2019-03-08] MEDS: Furosemide IV* 10 MG/ML VIAL (40 MG) IV SLOW PU SCH (08:36)
[2019-03-08] MEDS: Escitalopram * 20 MG TABLET PO SCH (08:36)
[2019-03-08] MEDS: busPIRone TAB* 5 MG PO SCH (08:36)
[2019-03-08] MEDS: Metoprolol Succinate XL TAB* 50 MG PO SCH (08:36)
[2019-03-08] MEDS: Gabapentin CAP(*) 300 MG PO SCH (08:36)
[2019-03-08] MEDS: NFT: Umeclidinium 62.5 MDI(NF) MDI INH SCH (08:46)
--- NOTE | 2019-03-08 22:34 | DS ---
CC: Dr. Lindsey; Dr. Garcia; Dr. Jayshree Diaz, [facility]* DISCHARGE SUMMARY: DATE OF ADMISSION: 03/05/19 DATE OF DISCHARGE: 03/08/19 PRIMARY CARE PROVIDER: None. MY ATTENDING FOR TODAY: Dr. Lindsey* (dictated by Amadou Vance NP) . PULMONOLOGY: Dr. Garcia. HOSPITAL COURSE: Ms. Jaime is a 48-year-old female with medical history consistent with coronary artery disease, COPD, tobacco abuse, and obesity. The patient presented in the emergency department with complaint of shortness of breath with exertion and some chest pain. The patient states that it has been getting progressively worse over the last 2 weeks. Given that the patient did have coronary artery bypass graft surgery in 2 vessels in 2018, she was admitted for rule out chest pain. The patient did appear to have some evidence of fluid overload and acute congestive heart failure. She also had some paroxysmal nocturnal dyspnea and some discomfort in the posterior chest. On imaging, she did have a moderate left-sided pleural effusion. She did not have any pneumonia. She was receiving some diuresis with IV Lasix, but her urine output did not coincide with her IV Lasix. She had an echocardiogram that showed preserved ejection fraction of 55% to 60%, some septal flattening of the interventricular septum consistent with right ventricular volume pressure overload. She did not have any evidence of valvular disorder. She had some trivial tricuspid regurgitation and there were no previous exams for comparison. She also does have a chronic wound of the galdamez. She did have a fracture of her right lower extremity with a very slowly healing wound. She was seen by wound care as well who noted that the patient should have some Triple Antibiotic ointment and benefit from some Keven wrapping and compression stockings, but otherwise it did not appear to be acutely infected. The patient did receive nebulizer treatments and diuresis. She did appear to be euvolemic. Her symptoms did begin to resolve with diuresis and nebulizer treatments. Today, upon examination, the patient denies any fever, fatigue, or chills. She denies chest pain. She does not have any acute shortness of breath. She does have a mild cough, which is nonproductive in nature. Denies any nausea or vomiting. No abdominal pain, no urinary complaints, no arthralgias or myalgias , and no further constitutional complaints. PHYSICAL EXAMINATION: Her physical exam today reveals a well-appearing woman slightly older than her stated age, in no acute distress. His vital signs are blood pressure 138/66, O2 saturation 94% on room air, respiratory rate 16, pulse 91, and temperature of 97.5. HEENT: The patient is atraumatic, normocephalic. PERRLA. Nonicteric sclerae. Oral mucosa is moist. Tongue is midline. Neck: Supple. Nontender. No JVD noted. No carotid bruits auscultated. Cardiovascular: S1, S2 present. No murmurs, gallops, or rubs noted. Rate and rhythm are regular. Lungs are clear at the apices bilaterally, somewhat diminished at the bases with no appreciable wheezing, rhonchi, or rales noted. Abdomen is soft, nontender, and nondistended. Positive bowel sounds in all 4 quadrants. : Deferred. Musculoskeletal: There is no clubbing, no cyanosis, and no edema. She does have a nonhealing wound at the right anterior galdamez that did not show any erythema, no pustular exudate. Wound bed is pink. She has some slough around the outer corners, but otherwise does not appear to be acutely infected. She has +2 distal pulses palpable. Full range of motion. Steady gait. Gross motor and sensation are intact. Neurologic: She is grossly intact with no focal deficits. Psychiatric: There have been some reports that she was appearing depressed; however, on my examination of her today, the patient does appear to have positive attitude, denies any acute depression, no suicidal ideation, no harm to self or others in our conversation. DIAGNOSTIC STUDIES/LAB DATA: Laboratories today: WBC is 7.2, RBC is 4.67, hemoglobin 12.9, hematocrit 39, platelets 328. Sodium 139, potassium 3.8, chloride 104, CO2 of 28, BUN 12, creatinine 0.87, GFR 68.9, glucose 101, hemoglobin A1c 6.6, calcium 8.9, magnesium 1.9. LFTs within normal limits. Troponin is negative at 0.00 and 0.01, CRP 16.74, BNP 66. Triglycerides 100, cholesterol 129 total, LDL 77, HDL is 32. Imaging: Echo as noted above. Chest x-ray at admission shows small left pleural effusion, left basilar infiltrate unchanged. DISCHARGE DIAGNOSES: 1. Acute shortness of breath secondary to acute congestive heart failure and chronic obstructive pulmonary disease. 2. Depression with anxiety, now stable. 3. History of coronary artery disease, status post coronary artery bypass graft , stable. 4. History of tobacco abuse. DISCHARGE MEDICATIONS: Include: 1. Incruse Ellipta 62.5 mcg inhaled daily. 2. Nitroglycerin 0.4 mg sublingual as needed. 3. Gabapentin 600 mg p.o. 4 times a day. 4. Lexapro 20 mg p.o. daily. 5. Ventolin inhaler 2 puffs q.4 hours as needed. New Medications: 1. Prednisone 50 mg p.o. daily x5 days. 2. Change in medication, BuSpar 5 mg p.o. 3 times a day. 3. Change in medication, metoprolol tartrate 25 mg p.o. 2 times daily. FOLLOWUPS: The patient was instructed to follow up with the [facility] at [facility] that will call her with an appointment. She was also instructed to follow up with Dr. Seema Garcia. Dr. Garcia's office will call the patient for an appointment. ACTIVITY: Progress activity as tolerated. DIET: Heart healthy, low sodium as tolerated. TIME SPENT: Approximately 45 minutes on discharge plan of care, medications, and followups. DISPOSITION: Discharged to home in stable condition. AMADOU VANCE NP [id number]/[facility] #: [id number] KEISHA
== END 2019-03-08 14:03 | disposition home or self-care (01) | DRG 292 ==
LOC: ED 17:01 → MEDTELE 20:49 → OBSVTOIN 03-07 15:52
PROVIDERS: ADMIT Internal Medicine; ATTEND Internal Medicine
DX: I11.0 Hypertensive heart disease with heart failure (principal); Z68.41 Body mass index [BMI] 40.0-44.9, adult; F17.210 Nicotine dependence, cigarettes, uncomplicated; E66.9 Obesity, unspecified; I25.10 Atherosclerotic heart disease of native coronary artery without angina pectoris; M79.7 Fibromyalgia; I44.7 Left bundle-branch block, unspecified; J44.9 Chronic obstructive pulmonary disease, unspecified; F41.8 Other specified anxiety disorders; S80.911A Unspecified superficial injury of right knee, initial encounter; I07.1 Rheumatic tricuspid insufficiency; X58.XXXA Exposure to other specified factors, initial encounter; I50.9 Heart failure, unspecified; Z95.1 Presence of aortocoronary bypass graft; Z82.49 Family history of ischemic heart disease and other diseases of the circulatory system; Z83.3 Family history of diabetes mellitus; Y92.9 Unspecified place or not applicable; Z81.8 Family history of other mental and behavioral disorders
CPT/HCPCS: 36415; 71045; 80048; 80053; 80061; 83036; 83605; 83735; 83880; 84484; 85025; 85730; 86140; 93005; 93306; 94640; 94762; 99284; 99406; A9270-GY; C8929; G0378; J1644; J1940; J2405; J2920